=== PATIENT | male | born 1960 | race Asian ===

== ENCOUNTER 2019-03-13 06:03 | Day surgery (SDC) | payer OTHER ==
[~2019-03-13] VITALS: Ht 162.6 cm; Wt 65.8 kg
[2019-03-13] MEDS ORDERED: fentaNYL 0.05 MG/ML VIAL ONE (07:29)
[2019-03-13] MEDS: fentaNYL 0.05 MG/ML VIAL IVP ONE (07:47)
[2019-03-13] MEDS: LIDOCAINE 2% 100 MG/5 ML UJET TP ONE (07:55)
== END 2019-03-13 08:40 | disposition home or self-care (01) ==
LOC: MOR 06:03 → MMU 06:12 → MOR 08:40
PROVIDERS: ATTEND Internal Medicine Gastroenterology
DX: Z12.11 Encounter for screening for malignant neoplasm of colon (principal); D12.2 Benign neoplasm of ascending colon; K57.30 Diverticulosis of large intestine without perforation or abscess without bleeding; I10 Essential (primary) hypertension; E11.9 Type 2 diabetes mellitus without complications; M10.9 Gout, unspecified; Z79.899 Other long term (current) drug therapy; Z87.891 Personal history of nicotine dependence
CPT/HCPCS: J3010